=== PATIENT | female | born 1990 | race Hispanic/Latino ===

== ENCOUNTER 2017-09-12 07:38 | Emergency (ER) | payer SELFPAY ==
[2017-09-12 07:54] LABS: #Basophils 0.1 thou/uL (0.0-0.2); #Eosinphils 0.3 thou/uL (0.0-0.7); #Monocytes 0.5 thou/uL (0.11-0.59); #Neutrophils 4.7 thou/uL (1.40-6.50); %Basophils 0.8 % (0.0-1.0); %Eosinophils 3.9 % (0.0-10.0); %Lymphocytes 26.3 % (21.0-51.0); %Monocytes 6.4 % (0.0-10.0); %Neutrophils 62.7 % (42.0-75.0); Hemoglobin 12.6 g/dL (12.0-16.0); Mean Corpuscular Hemoglobin 27.4 pg (27.0-31.0); Mean Platelet Volume 8.9 fL (7.4-10.4); Platelet Count 242 thou/uL (130-400); RBC Distribution Width 13.7 % (11.5-14.5); Red Blood Cell (RBC) Count 4.61 mill/uL (4.20-5.40); White Blood Cell (WBC) Count 7.5 thou/uL (4.8-10.8)
[2017-09-12 08:13] LABS: ALT (SGPT) 24 U/L (8-55); AST (SGOT) 17 U/L (5-34); Albumin 3.8 g/dL (3.5-5.0); Alkaline Phosphatase 139 U/L (40-150); Anion Gap 11 mmol/L (10-20); BUN (Urea Nitrogen) 8 mg/dL (7.0-18.7); Bilirubin, Total 0.2 mg/dL (0.2-1.2); Calc. Creatinine Clearance 0 mL/min (70-130); Calcium 9.2 mg/dL (7.8-10.44); Carbon Dioxide 27 mmol/L (22-29); Chloride 107 mmol/L (98-107); Estimated GFR-MDRD Greater than 90; Globulin 3.6 g/dL (2.4-3.5); Glucose 141 mg/dL (70-105); Protein, Total 7.4 g/dL (6.0-8.3); Sodium 141 mmol/L (136-145)
[2017-09-12 08:57] LABS: Bilirubin Small (Negative); Blood, Urine Negative (Negative); Glucose, Urine (Dipstick) Negative (Negative); Leukocyte Moderate (Negative); Nitrite Negative (Negative); Protein, Urine (Dipstick) 30 mg/dL (Neg-Trace); Specific Gravity, Urine 1.015 (1.005-1.030)
[2017-09-12 08:58] LABS: BHCG - Serum Negative (NEGATIVE); Pregs Control Background? CLEAR/WHITE (CLR/WHITE); Pregs Control Bar Appear? YES (CONTROL BAR)
[2017-09-12 09:11] LABS: Clarity Cloudy (Clear)
--- NOTE | 2017-09-12 09:51 | RAD ---
PORTABLE CHEST 1 VIEW: Date: 09/12/17 Time: 0916 hours HISTORY: Cough. FINDINGS: The heart size is normal. The lungs are expanded without focal areas of consolidation, pneumothorax, or pleural effusions. IMPRESSION: No radiographic evidence of acute cardiopulmonary process. POS: [facility]
== END 2017-09-12 09:49 | disposition home or self-care (01) ==
LOC: ERS 07:38
DX: J06.9 Acute upper respiratory infection, unspecified (principal)
CPT/HCPCS: 36415; 71045; 80053; 81003; 81015; 84703; 85025; 87804

== ENCOUNTER 2017-09-26 19:33 | Emergency (ER) | payer SELFPAY ==
[2017-09-26] MEDS ORDERED: Fluorescein Opthalmic Strip ONE (20:19)
[2017-09-26] MEDS ORDERED: Proparacaine 0.5% Opth 15 ML BOT ONE (20:19)
[2017-09-26 22:19] LABS: #Basophils 0.1 thou/uL (0.0-0.2); #Eosinphils 0.2 thou/uL (0.0-0.7); #Lymphocytes 2.9 thou/uL (1.20-3.40); #Monocytes 0.4 thou/uL (0.11-0.59); #Neutrophils 4.6 thou/uL (1.40-6.50); %Eosinophils 2.6 % (0.0-10.0); %Lymphocytes 34.9 % (21.0-51.0); %Monocytes 5.2 % (0.0-10.0); %Neutrophils 56.4 % (42.0-75.0); Hemoglobin 12.3 g/dL (12.0-16.0); Mean Corpuscular HGB CONC 32.7 g/dL (32.0-36.0); Mean Corpuscular Hemoglobin 26.9 pg (27.0-31.0); Mean Corpuscular Volume 82.2 fl (81.0-99.0); Mean Platelet Volume 9.5 fL (7.4-10.4); Platelet Count 239 thou/uL (130-400); RBC Distribution Width 13.2 % (11.5-14.5); Red Blood Cell (RBC) Count 4.59 mill/uL (4.20-5.40); White Blood Cell (WBC) Count 8.2 thou/uL (4.8-10.8)
[2017-09-26] MEDS ORDERED: Fentanyl 100 MCG/2 ML VIAL ONE (22:20)
[2017-09-26] MEDS ORDERED: Ketorolac Tromethamine 30 MG/ML VIAL ONE (22:22)
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
[2017-09-26 22:38] LABS: Bilirubin Negative (Negative); Clarity CLOUDY (Clear); Glucose, Urine (Dipstick) Negative (Negative); Leukocyte Large (Negative); Nitrite Negative (Negative); Protein, Urine (Dipstick) Trace mg/dL (Neg-Trace); Specific Gravity, Urine 1.021 (1.002-1.036)
[2017-09-26 22:39] LABS: Pregnancy Test - Urine (BHCG) Negative (Negative); Pregu Control Background? CLEAR/WHITE (CLR/WHITE); Pregu Control Bar Appear? YES (CONTROL BAR); Specific Gravity 1.021 (1.002-1.036)
[2017-09-26 22:40] LABS: ALT (SGPT) 23 U/L (8-55); AST (SGOT) 25 U/L (5-34); Albumin 3.8 g/dL (3.5-5.0); Alkaline Phosphatase 136 U/L (40-150); Anion Gap 13 mmol/L (10-20); BUN (Urea Nitrogen) 10 mg/dL (7.0-18.7); Bilirubin, Total 0.2 mg/dL (0.2-1.2); Calc. Creatinine Clearance 0 mL/min (70-130); Calcium 9.1 mg/dL (7.8-10.44); Carbon Dioxide 26 mmol/L (22-29); Chloride 104 mmol/L (98-107); Estimated GFR-MDRD Greater than 90; Globulin 3.5 g/dL (2.4-3.5); Glucose 97 mg/dL (70-105); Potassium 3.8 mmol/L (3.5-5.1); Protein, Total 7.3 g/dL (6.0-8.3); Sodium 139 mmol/L (136-145)
[2017-09-26 22:40] LABS: Hyaline Casts/LPF 0-3 HYALINE CAST LPF (0-3 Hyaline); Pathc Cast-AUWi Flag 0.27 (0-2.49)
[2017-09-26 22:50] LABS: Blood, Urine Trace (Negative)
[2017-09-26 22:51] LABS: Bacteria/HPF 2+ HPF (None Seen)
[2017-09-26] MEDS ORDERED: Cyclopentolate HCl 1% 5 ML BOT EA EYE SCH (23:45)
== END 2017-09-27 01:25 | disposition home or self-care (01) ==
LOC: ERS 19:33
DX: H20.9 Unspecified iridocyclitis (principal); N39.0 Urinary tract infection, site not specified
CPT/HCPCS: 70450; 70486; 80053; 81003; 81015; 81025; 85025; 96374; 96375; J1885; J3010

== ENCOUNTER 2018-01-30 21:36 | Emergency (ER) | payer OTHER, SELFPAY ==
[2018-01-30 22:09] LABS: #Basophils 0.1 thou/uL (0.0-0.2); #Eosinphils 0.2 thou/uL (0.0-0.7); #Lymphocytes 3.7 thou/uL (1.20-3.40); #Monocytes 0.4 thou/uL (0.11-0.59); #Neutrophils 5.9 thou/uL (1.40-6.50); %Eosinophils 1.5 % (0.0-10.0); %Lymphocytes 36.3 % (21.0-51.0); %Monocytes 3.7 % (0.0-10.0); %Neutrophils 57.4 % (42.0-75.0); Mean Corpuscular Hemoglobin 26.9 pg (27.0-31.0); Mean Platelet Volume 8.8 fL (7.4-10.4); Platelet Count 274 thou/uL (130-400); RBC Distribution Width 14.4 % (11.5-14.5); Red Blood Cell (RBC) Count 5.22 mill/uL (4.20-5.40); White Blood Cell (WBC) Count 10.2 thou/uL (4.8-10.8)
[2018-01-30 22:11] LABS: Bilirubin Negative (Negative); Blood, Urine Negative (Negative); Clarity CLEAR (Clear); Glucose, Urine (Dipstick) Negative (Negative); Leukocyte Large (Negative); Nitrite Negative (Negative); Protein, Urine (Dipstick) Negative (Neg-Trace); Specific Gravity, Urine 1.003 (1.002-1.036); Urobilinogen 0.2 mg/dL (0.2-1.0); pH, Urine 6.5 (5.0-9.0)
[2018-01-30 22:12] LABS: Pregnancy Test - Urine (BHCG) Negative (Negative); Pregu Control Background? CLEAR/WHITE (CLR/WHITE); Pregu Control Bar Appear? YES (CONTROL BAR)
[2018-01-30 22:13] LABS: Pathc Cast-AUWi Flag 0.43 (0-2.49)
[2018-01-30 22:14] LABS: Specific Gravity 1.003 (1.002-1.036)
[2018-01-30 22:21] LABS: ALT (SGPT) 17 U/L (8-55); AST (SGOT) 16 U/L (5-34); Albumin 4.3 g/dL (3.5-5.0); Alkaline Phosphatase 143 U/L (40-150); Anion Gap 18 mmol/L (10-20); BUN (Urea Nitrogen) 7 mg/dL (7.0-18.7); Bilirubin, Total 0.2 mg/dL (0.2-1.2); Calc. Creatinine Clearance 0 mL/min (70-130); Calcium 9.5 mg/dL (7.8-10.44); Carbon Dioxide 17 mmol/L (22-29); Chloride 110 mmol/L (98-107); Estimated GFR-MDRD Greater than 90; Globulin 3.9 g/dL (2.4-3.5); Glucose 110 mg/dL (70-105); Potassium 3.7 mmol/L (3.5-5.1); Protein, Total 8.2 g/dL (6.0-8.3); Sodium 141 mmol/L (136-145)
[2018-01-30 22:26] LABS: RBC/HPF 0-3 HPF (0-3); Squamous Epithelial 0-3 HPF (0-3)
[2018-01-30 22:27] LABS: Bacteria/HPF Rare-Few HPF (None Seen); Hyaline Casts/LPF NONE SEEN LPF (0-3 Hyaline)
[2018-01-30] MEDS ORDERED: Ketorolac Tromethamine 30 MG/ML VIAL ONE (22:43)
[2018-01-30] MEDS ORDERED: Fentanyl 100 MCG/2 ML VIAL ONE (22:43)
[2018-01-30] MEDS ORDERED: Morphine 4 MG/ML VIAL ONE (23:20)
[2018-01-30] MEDS ORDERED: Ondansetron HCl/PF 4 MG/2 ML Vial ONE (23:20)
== END 2018-01-30 23:47 | disposition left against medical advice (07) ==
LOC: ERS 21:36
DX: R10.2 Pelvic and perineal pain (principal)
CPT/HCPCS: 80053; 81003; 81015; 81025; 85025; 96374; 96375; J1885; J2270; J2405; J3010

== ENCOUNTER 2018-04-21 21:38 | Emergency (ER) | payer OTHER ==
[2018-04-21] MEDS ORDERED: Fluorescein Opthalmic Strip ONE (22:07)
[2018-04-21] MEDS ORDERED: Proparacaine 0.5% Opth 15 ML BOT ONE (22:07)
== END 2018-04-21 22:32 | disposition home or self-care (01) ==
LOC: ERS 21:38
DX: H10.9 Unspecified conjunctivitis (principal)
CPT/HCPCS: 99283

== ENCOUNTER 2018-11-13 22:36 | Emergency (ER) | payer OTHER, SELFPAY ==
[2018-11-13] MEDS ORDERED: Ibuprofen 200 MG TAB ONE (22:42)
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
[2018-11-13] MEDS ORDERED: HYDROcodone/Acetaminophen 5/325 mg Tablet ONE (23:48)
== END 2018-11-14 00:36 | disposition home or self-care (01) ==
LOC: ERS 22:36
DX: S60.012A Contusion of left thumb without damage to nail, initial encounter (principal); D64.9 Anemia, unspecified; W23.0XXA Caught, crushed, jammed, or pinched between moving objects, initial encounter

== ENCOUNTER 2019-03-07 16:11 | Emergency (ER) | payer SELFPAY ==
[2019-03-07] MEDS ORDERED: Ibuprofen 800 MG TAB ONE (17:06)
== END 2019-03-07 17:29 | disposition home or self-care (01) ==
LOC: ERS 16:11
DX: H61.21 Impacted cerumen, right ear (principal); D64.9 Anemia, unspecified
CPT/HCPCS: 99281

== ENCOUNTER 2019-10-25 19:53 | Emergency (ER) | payer MEDICAID, OTHER, SELFPAY ==
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
== END 2019-10-25 20:45 | disposition home or self-care (01) ==
LOC: ERS 19:53
DX: S93.602A Unspecified sprain of left foot, initial encounter (principal); D64.9 Anemia, unspecified; W01.0XXA Fall on same level from slipping, tripping and stumbling without subsequent striking against object, initial encounter

== ENCOUNTER 2020-04-23 18:43 | Emergency (ER) | payer OTHER, SELFPAY ==
--- NOTE | 2020-04-23 20:43 | RAD ---
CHEST ONE VIEW PORTABLE: History: Cough, known Covid exposure Comparison: 03-07-2020 FINDINGS: Heart size is normal. The lungs are clear. No confluent pneumonia, overt edema, pleural effusion or o ther acute process. IMPRESSION: No evidence for pneumonia. Stable from prior study. POS: [facility]
[2020-04-24 16:05] LABS: SARS-CoV-2 MS2 Positive; SARS-CoV-2 N Gene Positive; SARS-CoV-2 S Gene Positive; SARS-CoV-2 by NAA DETECTED (NotDetected); SARS-CoV-2 orf1ab Positive
== END 2020-04-23 22:51 | disposition home or self-care (01) ==
LOC: ERS 18:43
DX: U07.1 COVID-19 (principal); R11.2 Nausea with vomiting, unspecified; D64.9 Anemia, unspecified
CPT/HCPCS: 71045; 87635; 96360; 96361; U0003

== ENCOUNTER 2020-12-28 10:36 | Emergency (ER) | payer SELFPAY ==
[2020-12-28 10:56] LABS: Bilirubin Small (Negative); Blood, Urine Negative (Negative); Glucose, Urine (Dipstick) Negative (Negative); Ketone, Urine Negative (Negative); Leukocyte Trace (Negative); Nitrite Negative (Negative); Protein, Urine (Dipstick) Trace mg/dL (Neg-Trace)
[2020-12-28 10:59] LABS: Clarity Hazy (Clear); Pregnancy Test - Urine (BHCG) Negative (Negative); Specific Gravity, Urine 1.027 (1.005-1.030)
[2020-12-28 11:00] LABS: Pregu Control Background? CLEAR/WHITE (CLR/WHITE); Pregu Control Bar Appear? YES (CONTROL BAR); Specific Gravity 1.027 (1.002-1.036)
[2020-12-28 11:14] LABS: Bacteria/HPF Rare-Few HPF (None Seen); RBC/HPF 0-3 HPF (0-3)
[2020-12-28] MEDS ORDERED: Ketorolac Tromethamine 30 MG/ML VIAL ONE (11:41)
[2020-12-28] MEDS ORDERED: Cyclobenzaprine 10 MG TAB ONE (11:41)
== END 2020-12-28 12:23 | disposition home or self-care (01) ==
LOC: ERS 10:36
DX: M54.42 Lumbago with sciatica, left side (principal); M54.41 Lumbago with sciatica, right side
CPT/HCPCS: 72100; 81003; 81015; 81025; 96372; J1885

== ENCOUNTER 2021-06-15 16:39 | Emergency (ER) | payer SELFPAY ==
[2021-06-15] MEDS ORDERED: Ketorolac Tromethamine 30 MG/ML VIAL ONE (17:14)
[2021-06-15 17:30] LABS: #Eosinphils 0.1 thou/uL (0.0-0.7); #Lymphocytes 1.4 thou/uL (1.20-3.40); #Monocytes 0.3 thou/uL (0.11-0.59); #Neutrophils 5.4 thou/uL (1.40-6.50); %Basophils 0.6 % (0.0-1.0); %Lymphocytes 18.8 % (21.0-51.0); %Monocytes 4.1 % (0.0-10.0); %Neutrophils 74.5 % (42.0-75.0); Hemoglobin 13.3 g/dL (12.0-16.0); Mean Corpuscular HGB CONC 33.4 g/dL (32.0-36.0); Mean Corpuscular Hemoglobin 27.7 pg (27.0-31.0); Mean Corpuscular Volume 82.8 fL (78.0-98.0); Mean Platelet Volume 9.3 fL (7.4-10.4); Platelet Count 181 thou/uL (130-400); RBC Distribution Width 13.3 % (11.5-14.5); Red Blood Cell (RBC) Count 4.82 mill/uL (4.20-5.40); White Blood Cell (WBC) Count 7.3 thou/uL (4.8-10.8)
[2021-06-15 17:52] LABS: ALT (SGPT) 38 U/L (8-55); AST (SGOT) 40 U/L (5-34); Albumin 3.2 g/dL (3.5-5.0); Alkaline Phosphatase 81 U/L (40-110); Anion Gap 11 mmol/L (10-20); BUN (Urea Nitrogen) 12 mg/dL (7.0-18.7); Bilirubin, Total 0.3 mg/dL (0.2-1.2); Calc. Creatinine Clearance 0 mL/min (70-130); Calcium 8.5 mg/dL (7.8-10.44); Carbon Dioxide 23 mmol/L (22-29); Chloride 109 mmol/L (98-107); Globulin 2.9 g/dL (2.4-3.5); Glucose 155 mg/dL (70-105); Potassium 3.8 mmol/L (3.5-5.1); Protein, Total 6.1 g/dL (6.0-8.3); Sodium 139 mmol/L (136-145)
== END 2021-06-15 18:34 | disposition home or self-care (01) ==
LOC: ERS 16:39
DX: M79.644 Pain in right finger(s) (principal); R79.82 Elevated C-reactive protein (CRP); D64.9 Anemia, unspecified; Z87.891 Personal history of nicotine dependence; Z79.899 Other long term (current) drug therapy
CPT/HCPCS: 29125; 36415; 80053; 85025; 85652; 86140; 96372; J1885

== ENCOUNTER 2023-07-09 07:44 | Emergency (ER) | payer SELFPAY ==
[2023-07-09] MEDS ORDERED: Ketorolac Tromethamine 30 MG/ML VIAL ONE (08:29)
[2023-07-09] MEDS ORDERED: Ondansetron PF 4 MG/2 ML Vial ONE (08:40)
[2023-07-09 09:34] LABS: SARS-CoV-2 NAA Rapid Test Not Detected (NotDetected)
[2023-07-09 09:41] LABS: Bacteria/HPF None Seen HPF (None Seen); Bilirubin 1+ (Negative); Blood, Urine Negative (Negative); CAUTI Indications for Culture Fever or rigors; Clarity Clear (Clear); Glucose, Urine (Dipstick) Normal (Negative); Ketone, Urine Negative (Negative); Leukocyte 25 Leu/uL (Negative); Nitrite Negative (Negative); Pregnancy Test - Urine (BHCG) Negative (Negative); Pregu Control Background? CLEAR/WHITE (CLR/WHITE); Pregu Control Bar Appear? YES (CONTROL BAR); Protein, Urine (Dipstick) 20 mg/dL (Neg-Trace); RBC/HPF 0-3 HPF (0-3); Specific Gravity 1.021 (1.002-1.036); Specific Gravity, Urine 1.021 (1.002-1.036); Squamous Epithelial 0-3 HPF (0-3); pH, Urine 6.5 (5.0-9.0)
[2023-07-09 09:43] LABS: Urine Culture Reflex No No
== END 2023-07-09 09:50 | disposition home or self-care (01) ==
LOC: ERS 07:44
DX: J10.1 Influenza due to other identified influenza virus with other respiratory manifestations (principal); Z87.891 Personal history of nicotine dependence
CPT/HCPCS: 81001; 81025; 96361; 96374; 96375; J1885; J2405